=== PATIENT | female | born 2005 | race Caucasian/White ===

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

== ENCOUNTER 2024-05-30 12:13 | Emergency (ER) | payer SELFPAY ==
--- OUTSIDE RECORDS SUMMARY | 2024-05-30 12:15 | XMS_ITS | Clinical Summary ---
Author Organization [facility] Address [address] [place] [address] Phone Care Team Providers Care Specialist Icu Name Role Phone Provider, None Primary Care Provider Unavailabl e Allergies No known active allergies Medications dicyclomine (BENTYL) 20 MG Tablet Take 1 Tab by mouth every 6 hours as needed for Other (ABDOMINAL PAIN/BOWEL SPASMS). 10 Tab 09/29/2019 Active Social History Tobacco Use Types Packs/Day Years Used Date Smoking Tobacco: Never Smokeless Tobacco: Never Alcohol Use Standard Drinks/Week Comments Never 0 (1 standard drink = 0.6 oz pur e alcohol) AUDIT-C Answer Date Recorded Q1: How often do you have a drink containing alc ohol? Never 09/29/2019 Average Number of Drinks Not on file 020 Frequency of Binge Drinking Not on file 09/14 Comments No Sex and Gender Information Value Date Recorded Sex Assigned at Not on file Legal Sex Female 9:06 PM CDT Gender Identity Not on file Sexual Orientation Not on file Last Filed Vital Signs Vital Sign Reading Time Taken Comments Blood Pressure 136/72 02/20/2020 8:01 AM YOUTH SERVICES SPECIALIST Pulse 95 02/20/2020 8:01 AM YOUTH SERVICES SPECIALIST Temperature 36.1 C (97 F) 02/20/2020 5:43 AM YOUTH SERVICES SPECIALIST Respiratory Rate 16 02/20/2020 8:01 AM YOUTH SERVICES SPECIALIST Oxygen Saturation 97% 02/20/2020 8:01 AM YOUTH SERVICES SPECIALIST Inhaled Oxygen Concentration - - Weight 72.6 kg (160 lb) 02/20/2020 5:43 AM YOUTH SERVICES SPECIALIST Height 149.9 cm (4' 11 ) 02/20/2020 5:43 AM YOUTH SERVICES SPECIALIST Body Mass Index 32.32 02/20/2020 5:43 AM YOUTH SERVICES SPECIALIST Plan of Treatment Health Maintenance Due Date Last Done Comments Hepatitis C Virus (HCV) Screening 2004 Hepatitis B Immunization (3 of 3 - 3-dose series) 05/15/2005 03/20/2005, 2004 Human Papillomavirus (HPV) Immunization (2 - 2-dose series) 08/01/2017 01/31/2017 Meningococcal B Immunization (1 of 2 - Standard) 2020 Influenza Immunization (#1) 12/16/202301/14, 02/22/2006, 04/24/2005, Additional history exists SARS-COV-2 Immunization ( - 2023- season) 2023 Respiratory Syncytial Virus (RSV) Immunization (Adult) (1 - 1-dose 75+ series) 2079 Pneumococcal Immunization Combined Aged Out 03/20/2005, 2004, 2004 No longer eligible based on patient's age to complete this topic Hepatitis A Immunization Discontinued 08/25/2009, 07/16 Measles Mumps Rubella (MMR) Immunization Discontinued 08/25/2009, 03/20/2005 Polio (IPV) Immunization Discontinued 08/25/2009 Varicella Immunization Discontinued 08/25/2009, 2005 DTaP/Tdap/Td Immunization Discontinued 2016, 08/25/2009, 08/11/2005, Additional history exists Meningococcal Immunization (ACWY) Aged Out 01/31/2017 No longer eligible based on patient's age to complete this topic TdaP Immunization Completed 01/31/2017 Rotavirus Immunization Aged Out No lo nger eligible based on patient's age to complete this topic Insurance [place] Care Teams Specialist Icu Relationship Specialty Start Date End Date Provider, None [place] PCP - General 09/29/19
[2024-05-30 12:19] VITALS: BP 132/70; PULSE 118; RESP 18; TEMP 37; O2SAT 99
--- NOTE | 2024-05-30 12:33 | ED_ITS ---
HPI - General Adult General Chief complaint: Upper Respiratory Infection Stated complaint: cough Source: patient Mode of arrival: ambulatory Limitations: no limitations History of Present Illness HPI narrative: 19 y/o female presented for c/o cough and concern for UTI. Endorses 2 weeks of burning with urination, frequency and urgency. denies hematuria, nausea, vomiting, abdominal pain, flank pain, constipation, diarrhea, fevers or chills. The other day she felt left flank pain but none since. LMP 1 month, endorses unprotected sexual activity but denies concern for std at this time. Pt also reports cough x one week. States she smokes 1ppd, and has a chronic cough, but it has been worse the past few days. States coughing has induced vomiting. Denies sob,wheezing, n/v/d/f/c . Related Data Allergies Allergy/AdvReac Type Severity Reaction Status Date / Time No Known Allergies Allergy Verified 05/30/24 12:24 Review of Systems Review of Systems: CONSTITUTIONAL: Denies body aches, fever, chills, or sweats. EYES: Denies visual changes, redness, or discharge. ENT: Denies rhinorrhea, congestion, sore throat, or otalgia. CARDIOVASCULAR: Denies chest pain, palpitations, or edema. RESPIRATORY: Reports cough, denies sob, wheezing. GASTROINTESTINAL: Denies abdominal pain, nausea, vomiting, or diarrhea. GENITOURINARY: reports dysuria SKIN: Denies rash, itching, or wounds. MUSCULOSKELETAL: Denies back pain, joint pain, or myalgia. NEUROLOGIC: Denies headache, numbness, tingling, or weakness. PSYCH: Denies depression or anxiety. All systems reviewed & are unremarkable except as noted in HPI and below [facility] Comments At time of signature, I have reviewed and agree with nursing past medical, surgical, social and family history unless otherwise noted. Please see nursing chart for further information. There is no relevant family history pertinent to the presenting complaint Exam Narrative: GENERAL: Well-appearing, in no acute distress. EYES: EOMI. No redness or drainage. Conjunctivae normal. ENT: Mucous membranes pink and moist. No rhinorrhea. TMs normal bilaterally. Throat normal. Uvula midline. NECK: Normal AROM. Supple. CHEST: No respiratory distress. lungs clear to all morales. HEART: Regular rate and rhythm. No murmur appreciated. ABDOMEN: Soft, nontender, nondistended, normal active bowel sounds. SKIN: Warm, dry, no rash. Capillary refill normal. Normal skin turgor. NEURO: Alert and oriented x3. Gait steady. PSYCH: Normal affect. Course Course Emergency Course: Patient is aware of diagnosis, understands and agrees to treatment plan. Anticipatory guidance given. Patient agrees to follow-up as directed and is aware of reasons to seek care at the emergency department. Portions of this record may have been created with voice recognition software Level of Care: Express Care Visit Vital Signs Vital signs: Vital Signs Temperature 98.6 F 05/30/24 12:19 Pulse Rate 118 H 05/30/24 12:19 Respiratory Rate 18 05/30/24 12:19 Blood Pressure 132/70 05/30/24 12:19 Pulse Oximetry 99 05/30/24 12:19 Oxygen Delivery Room Air 05/30/24 12:19 Temperature 98.6 F 05/30/24 12:19 Pulse Rate 118 H 05/30/24 12:19 Respiratory Rate 18 05/30/24 12:19 Blood Pressure 132/70 05/30/24 12:19 Pulse Oximetry 99 05/30/24 12:19 Oxygen Delivery Room Air 05/30/24 12:19 Medical Decision Making MDM Narrative Medical decision making narrative: neg preg. Discussed physical exam findingsAnd urine results. Macrobid Rx. Steroid and inhaler for bronchitis.. Advised supportive measures and signs/symptoms to go to the ER. Pt is appropriate for outpt treatment and f/u. Differential Diagnosis Differential Diagnosis: Influenza, covid, sinusitis, OM, strep pharyngitis, URI, cystitis, uti, BV, vaginitis Vital Signs Vital Signs: Vital Signs Temperature 98.6 F 05/30/24 12:19 Pulse Rate 118 H 05/30/24 12:19 Respiratory Rate 18 05/30/24 12:19 Blood Pressure 132/70 05/30/24 12:19 Pulse Oximetry 99 05/30/24 12:19 Oxygen Delivery Room Air 05/30/24 12:19 Temperature 98.6 F 05/30/24 12:19 Pulse Rate 118 H 05/30/24 12:19 Respiratory Rate 18 05/30/24 12:19 Blood Pressure 132/70 05/30/24 12:19 Pulse Oximetry 99 05/30/24 12:19 Oxygen Delivery Room Air 05/30/24 12:19 Lab Data Labs: Lab Results 05/30/24 Range/Units 12:41 POC Urine Color Yellow POC Urine Clarity Cloudy POC Urine pH 7.0 POC Ur Specif Aylett 1.025 POC Urine Protein 1+ (Negative) POC Ur Glucose (UA) Negative (Negative) POC Urine Ketones Negative (Negative) POC Urine Blood 2+ (Negative) POC Urine Nitrite Negative (Negative) POC Urine Bilirubin Negative (Negative) POC Urine Urobilinogen 0.2 POC U Leukocyte Esteras 2+ (Negative) Discharge Plan Discharge Clinical Impression: Bronchitis, UTI (urinary tract infection) Patient Disposition: Home, Self-Care Condition: Stable Instructions: Antibiotic Form, Urinary Tract Infection in Women (ED), Acute Bronchitis (ED) Additional Instructions: cough: Acute bronchitis can be contagious because it is usually caused by infection with a virus or bacteria. It is usually for a few days but you can be contagious for up to one week. Avoid crowds until you do not have a fever and symptoms are improved Take medication as directed Recommendations: Flonase spray and Zyrtec (or Claritin/Karen) albuterol inhaler as needed over the counter Cough syrup may cause drowsiness; avoid driving or take it at night time. Tylenol 1000mg every 8 hours as needed for pain Avoid triggers, stop smoking, get plenty of rest, push fluids, and increase humidity of the air at home. Urine: Take the antibiotic as prescribed The urine will be sent of for a culture to identify what type of bacteria is causing your infection. If the culture shows that the antibiotic will not get rid of your infection, you will be notified and a new antibiotic will be called in for you. Increase water intake you will need to follow up with your PCP, call to schedule an appointment. Go to the ER for any worsening symptoms or concerns Patient Language: Khmer Prescriptions: New prednisone 20 mg tablet 40 mg PO DAILY 4 Days Qty: 8 0RF albuterol sulfate 90 mcg/actuation HFA aerosol inhaler 2 inh inhalation QID PRN (Reason: shortness of breath or wheezing) Qty: 8.5 0RF nitrofurantoin monohyd/m-cryst [Macrobid] 100 mg capsule 100 mg PO Q12H 5 Days Qty: 10 0RF Rx Instructions: must administer with a meal/food No Action cetirizine-pseudoephedrine [Zyrtec-D] 5-120 mg tablet extended release 12 hr 1 tablet PO Q12H PRN (Reason: nasal congestion) Qty: 12 0RF fluticasone propionate [Flonase Allergy Relief] 50 mcg/actuation spray,suspension 2 spray NASAL DAILY 14 Days Qty: 15.8 0RF Rx Instructions: administer into each nostril Follow-up/Referrals: PHYSICIAN,RESTAURANT ASSISTANT [Primary Care Provider] - Time of Disposition: 12:56
[2024-05-30 12:44] LABS: EDUAAPPEAR Cloudy; EDUABILI Negative (Negative); EDUABLOOD 2+ (Negative); EDUACOLOR1 Yellow; EDUAGLUCOSE Negative (Negative); EDUAKETONE Negative (Negative); EDUALEUKO 2+ (Negative); EDUANITRATE Negative (Negative); EDUAPROTEIN 1+ (Negative); EDUASPGRAVITY 1.025; EDUAUROBILI 0.2
[2024-05-30 13:02] LABS: BEDSIDEPREGUCG Negative (Negative)
== END 2024-05-30 12:58 | disposition home or self-care (01) ==
PROVIDERS: Emergency Provider Nurse Practitioner Family
DX: J40 Bronchitis, not specified as acute or chronic (principal); N39.0 Urinary tract infection, site not specified; F17.210 Nicotine dependence, cigarettes, uncomplicated
CPT/HCPCS: 81003; 81025; 87086; 99213; G0463

== ENCOUNTER 2024-12-29 11:10 | Emergency (ER) | payer SELFPAY ==
[2024-12-29 11:15] VITALS: BP 125/70; PULSE 108; RESP 16; TEMP 36.4; O2SAT 99
--- NOTE | 2024-12-29 11:36 | ED.URI ---
HPI - URI/Sore Throat General Chief Complaint: Upper Respiratory Infection Stated Complaint: cold/flu Time Seen by Provider: 12/29/24 11:36 Source: patient and RN notes reviewed Mode of arrival: ambulatory Limitations: no limitations History of Present Illness HPI Narrative: 19-year-old female presented for complaint of nasal congestion and drainage, body aches and cough. Onset yesterday. Endorses 1 episode of diarrhea and throat feels sore due to the cough. Shortness of breath, wheezing, nausea, vomiting or lethargy. Has not taken anything for symptoms. Patient is a daily smoker MD elicited complaint: cough Related Data Allergies Allergy/AdvReac Type Severity Reaction Status Date / Time No Known Allergies Allergy Verified 12/29/24 11:19 Review of Systems Review of Systems: CONSTITUTIONAL: Endorses malaise, body aches, denies fever EYES: Denies visual changes, redness, or discharge ENT: Reports rhinorrhea, congestion, denies otalgia, sore throat CARDIOVASCULAR: Denies chest pain, palpitations, edema RESPIRATORY: Reports cough, post nasal drainage. Denies dyspnea GASTROINTESTINAL: Denies abdominal pain, nausea, vomiting, diarrhea SKIN: Denies rash NEUROLOGIC: Denies headache Exam Narrative: GENERAL: mildly Ill-appearing, nontoxic no acute distress. EYES: conjunctivae clear ENT: Mucous membranes moist. TM pearly sherwood with dull light reflex bilaterally; no tragal tenderness. Oropharynx not erythematous without lesions or exudate, no drooling, no hoarseness, no trismus, uvula midline. NECK: Supple. No lymphadenopathy CHEST: Clear to auscultation, breath sounds equal. No wheezing, rhonchi, rales, or stridor. No respiratory distress, speaks in full sentences. HEART: Regular rate and rhythm. No murmur heard. SKIN: Warm, dry, no rash. NEURO: Alert and oriented x3. PSYCH: Normal mood and affect Course Course Emergency Course: Patient is aware of diagnosis, understands and agrees to treatment plan. Anticipatory guidance given. Patient agrees to follow-up as directed and is aware of reasons to seek care at the emergency department. Portions of this record may have been created with voice recognition software Level of Care: Express Care Visit Vital Signs Vital signs: Vital Signs Temperature 97.6 F 12/29/24 11:15 Pulse Rate 108 H 12/29/24 11:15 Respiratory Rate 16 12/29/24 11:15 Blood Pressure 125/70 12/29/24 11:15 Pulse Oximetry 99 12/29/24 11:15 Oxygen Delivery Room Air 12/29/24 11:15 Temperature 97.6 F 12/29/24 11:15 Pulse Rate 108 H 12/29/24 11:15 Respiratory Rate 16 12/29/24 11:15 Blood Pressure 125/70 12/29/24 11:15 Pulse Oximetry 99 12/29/24 11:15 Oxygen Delivery Room Air 12/29/24 11:15 reviewed MDM - URI/Sore Throat MDM Narrative Medical decision making narrative: negative flu and COVID. Results reviewed with patient, Discussed physical exam findings. Advised supportive measures and signs/symptoms to go to the ER. Pt is appropriate for outpt treatment and f/u. Differential Diagnosis Differential diagnosis: Likely upper respiratory infection, sinusitis and viral infection Discharge Plan Discharge Clinical Impression: Viral infection Patient Disposition: Home Condition: Stable Instructions: Upper Respiratory Infection (ED) Additional Instructions: Your rapid covid/flu test was negative today. It may be too early to detect the virus, therefore we recommend retesting at home in 1-2 days Continue to follow general precautions: frequent handwashing, wear a mask, isolate/social distance, and avoid crowds if you have a fever. You must be fever free for 24 hours without the use of fever reducing medication (Tylenol/ibuprofen) before returning to work/school/crowds. Recommendations: Flonase spray and Zyrtec (or Claritin/Karen) over the counter Cough syrup may cause drowsiness; avoid driving or take it at night time. Tylenol 1000mg every 8 hours as needed for pain Symptomatic treatment includes: rest, fluids, and increase humidity of the air at home. Follow up with your primary care provider in 1 week. Go to the ER for worsening symptoms or concerns. Patient Language: Malawian Prescriptions: New prednisone 20 mg tablet 40 mg PO DAILY 4 Days Qty: 8 0RF Follow-up/Referrals: PHYSICIAN,MUD CAR WORKER [Primary Care Provider, Internal Medicine] Stand Alone Forms: Work/School Release IP Time of Disposition: 11:42
[2024-12-29 11:40] LABS: EDCOVIDSCREEN Negative (Negative); EDINFLUASCREEN Negative (Negative); EDINFLUBSCREEN Negative (Negative)
--- OUTSIDE RECORDS SUMMARY | 2024-12-29 13:12 | XMS_ITS | Clinical Summary ---
Author Organization [facility] Address [address] [place] [address] Phone Care Team Providers Care Instrument Repairer Helper Name Role Phone Provider, None Primary Care [...] Comments Blood Pressure 136/72 02/20/2020 8:01 AM HAND ALTERATIONS SEAMSTRESS Pulse 95 02/20/2020 8:01 AM HAND ALTERATIONS SEAMSTRESS Temperature 36.1 C (97 F) 02/20/2020 5:43 AM HAND ALTERATIONS SEAMSTRESS Respiratory Rate 16 02/20/2020 8:01 AM HAND ALTERATIONS SEAMSTRESS Oxygen Saturation 97% 02/20/2020 8:01 AM HAND ALTERATIONS SEAMSTRESS Inhaled Oxygen Concentration - - Weight 72.6 kg (160 lb) 02/20/2020 5:43 AM HAND ALTERATIONS SEAMSTRESS Height 149.9 cm (4' 11) 02/20/2020 5:43 AM HAND ALTERATIONS SEAMSTRESS Body Mass Index 32.32 02/20/2020 5:43 AM HAND ALTERATIONS SEAMSTRESS Plan of Treatment Health Maintenance Due Date Last Done Comments Hepatitis C Virus (HCV) Screening 2004 Hepatitis B Immunization (3 of 3 - 3-dose series) 05/15/2005 03/20/2005, 2004 Human Papillomavirus (HPV) Immunization (2 - 2-dose series) 08/01/2017 01/31/2017 Meningococcal B Immunization (1 of 2 - Standard) 2020 SARS-COV-2 Immunization ( - season) 2023 Influenza Immunization (#1) 12/15/202401/14, 02/22/2006, 04/24/2005, Additional history exists Respiratory Syncytial Virus (RSV) Immunization (Adult) (1 [...] [place] Care Teams Instrument Repairer Helper Relationship Specialty Start Date End Date Provider, None [place] PCP - General 09/29/19
== END 2024-12-29 11:45 | disposition home or self-care (01) ==
PROVIDERS: Emergency Provider Nurse Practitioner Family
DX: B34.9 Viral infection, unspecified (principal); Z20.822 Contact with and (suspected) exposure to COVID-19
CPT/HCPCS: 87426; 87804; 99213; G0463